=== PATIENT | female | born 2000 | race Caucasian/White ===

== ENCOUNTER 2023-03-02 15:25 | Inpatient (IN) | payer OTHER, SELFPAY ==
[2023-03-02] VITALS (8 sets, daily range): BP systolic 144–159; BP diastolic 76–94; PULSE 106–121; RESP 17–21; TEMP 37–37.8; O2SAT 93–96; BMI 54.3
--- NOTE | 2023-03-02 17:33 | ED.URI ---
HPI - URI/Sore Throat General Chief Complaint: Dyspnea Stated Complaint: sob,fever,pneumonia sent from urgent care Time Seen by Provider: 03/02/23 19:58 Source: patient, family and old records reviewed Mode of arrival: ambulatory Limitations: no limitations History of Present Illness HPI Narrative: 23 yo female with PMH of asthma, PTSD, idiopathic intracranial HTN, bipolar, obesity notes sick since saturday with cough, fevers up to 101 last at 1pm, difficulty breathing, nausea and shortness of breath. She was seen at urgent care - started on zpack and augmentin now has diarrhea and doesn't feel like despite abx for 48 hours she is improving. She is using her INH without relief. She notes no prednisone use but can tolerate it.She comes here for further care MD elicited complaint: fever and cough Pertinent past history: asthma Onset (ago): day(s) (Saturday) Consistency: progressively worsening Severity: moderate Able to tolerate fluids by mouth: Yes Exacerbating factors: exertion and other (coughing) Relieving factors: nothing Context: other (started after she went to [place] for [place] but stayed with partner's family no hotel use and no sick contacts) Associated symptoms: fever, chills, myalgias, rhinorrhea, cough and shortness of breath Treatments prior to arrival: acetaminophen and antibiotics Related Data Allergies Allergy/AdvReac Type Severity Reaction Status Date / Time cariprazine [From Vraylar] Allergy Rash Verified 03/02/23 17:37 cephalexin [From Keflex] Allergy Rash Verified 03/02/23 17:37 doxycycline Allergy Rash Verified 03/02/23 17:37 furosemide [From Lasix] Allergy Rash Verified 03/02/23 17:37 lamotrigine [From Lamictal] Allergy Rash Verified 03/02/23 17:37 linezolid Allergy Rash Verified 03/02/23 17:37 lithium Allergy Rash Verified 03/02/23 17:37 sulfamethoxazole Allergy Rash Verified 03/02/23 17:37 Tetracyclines Allergy Rash Verified 03/02/23 17:37 trimethoprim [From Bactrim] Allergy Rash Verified 03/02/23 17:37 vilazodone [From Viibryd] Allergy Rash Verified 03/02/23 17:37 Review of Systems Review of Systems: Constitutional : pos Fever, pos Chills ENT/Mouth : No Hoarseness, No sore throat, No Rhinorrhea Eyes: No Redness, No Discharge, No Vision Changes Cardiovascular : No Chest Pain, positive SOB, positive Dyspnea on Exertion, No Edema Respiratory : positive Cough, pos Sputum, positive Wheezing, Gastrointestinal : pos Nausea, pos Vomiting, pos Diarrhea, No abdominal Pain Genitourinary : No Dysuria, No Hematuria Musculoskeletal : No joint pain, No Myalgias Skin : No rash Neuro : pos Weakness, No Numbness, No Headache Psych : No anxiety, depression Heme/Lymph: No Bruising, No Bleeding Endocrine : No Polyuria, No Polydipsia All other systems reviewed and are negative [facility] Past Medical History Attestation statement: The following information was validated with the patient. Source: old records reviewed Onset Date is defined in the Problem List Problems that require an onset date and time if occurred within 24 hrs of arrival to the ED Aortic Dissection and Rupture; Neurologic impairment; Cardiopulmonary Arrest; Endotracheal Intubation; Insertion or Replacement of Mechanical Circulatory Assist Device Medical History Asthma PTSD (post-traumatic stress disorder) Bipolar 1 disorder Social History Social History (Updated 03/02/23 @ 20:29 by Elena Castillo DO) Patient Tobacco Use Status: Never used Tobacco Smoked in Last 30 Days: No Use of substances other than those prescribed or required for medical reasons: No Advance Directives: No Advance Directives Information Provided: No Physical Exam Vital Signs: Vital Signs: Last Vital Signs Temp 98.7 F 03/02/23 22:25 Pulse 113 H 03/02/23 22:47 Resp 17 03/02/23 22:47 BP 159/94 H 03/02/23 20:08 Pulse Ox 96 03/02/23 22:25 O2 Del Method Room Air 03/02/23 22:25 BMI result Body Mass Index 54.3 Appearance: Alert. Oriented X3. No acute distress. Eyes: Pupils equal, round and reactive to light. ENT: Pharynx normal. Neck: Normal inspection. Neck supple. CVS: Normal heart rate and rhythm. Pulses normal. Respiratory: No respiratory distress. Breath sounds diminished R base both lungs are coarse with rhonchi and has dry persistent cough - diffuse exp wheezes in upper lobes Abdomen: Soft and non-tender. Skin: Skin warm and dry. Normal skin color. Normal skin turgor. Extremities: No lower extremity edema. No calf ttp Neuro: Oriented X 3. No motor deficit. No sensory deficit. Course Course Course Narrative: This is a rapid medical exam. Deferred additional HPI, ROS, PE to primary provider. 23 yo female with history of bipolar disorder, depression, anxiety, PTSD, PCOS, migraines, pseudotumour cerebri, asthma sent from [facility] here with complaints of nausea, vomiting, diarrhea, chest wall pain, difficulty breathing, fevers despite being on azithromycin/augmentin x 48 hrs. Had outpatient x-ray concern for bilateral PNA 2 days ago. Will obtain labs, viral testing, CXR VSS Medications Administered Generic Name Dose Route Start Last Admin Trade Name Freq PRN Reason Stop Dose Admin Albuterol/Ipratropium 3 ml 03/02/23 22:38 03/02/23 22:47 Albuterol/Iprat 2.5/0.5mg 3 Ml Ampul.Neb INHALE 3 ml Q4H PRN Administration Wheezing Discontinued Medications Generic Name Dose Route Start Last Admin Trade Name Freq PRN Reason Stop Dose Admin Albuterol Sulfate 2.5 mg/ 5 mg 03/02/23 20:21 03/02/23 20:28 Albuterol Sulfate 2.5 mg INHALE 03/02/23 20:22 5 mg ONCE ONE Administration Albuterol Sulfate 5 mg/ 7.5 mg 03/02/23 20:59 03/02/23 21:04 Albuterol Sulfate 2.5 mg INHALE 03/02/23 21:00 7.5 mg ONCE ONE Administration Piperacillin Sod/Tazobactam 50 mls @ 100 mls/hr 03/02/23 20:13 03/02/23 21:29 Sod 3.375 gm/ Sodium Chloride IV 03/02/23 20:42 Infused ONCE ONE Infusion Sodium Chloride 1,000 mls @ 999 mls/hr 03/02/23 20:45 03/02/23 21:54 Ns IV 03/02/23 21:45 Infused .Q1H1M JANELL Infusion Levofloxacin 750 mg in 150 mls @ 100 mls/hr 03/02/23 21:00 03/02/23 21:29 Levaquin IV 03/02/23 22:29 100 mls/hr ONCE ONE Administration Ketorolac Tromethamine 15 mg 03/02/23 20:31 03/02/23 20:46 Ketorolac Tromethamine 15 Mg/Ml Vial IVPUSH 03/02/23 20:32 15 mg ONCE ONE Administration Methylprednisolone Sodium Succinate 60 mg 03/02/23 20:12 03/02/23 20:46 Methylprednisolone Sod Succ 125 Mg/2 Ml Vial IVPUSH 03/02/23 20:13 60 mg ONCE ONE Administration Ondansetron HCl 4 mg 03/02/23 20:12 03/02/23 20:46 Ondansetron Hcl 4 Mg/2 Ml Vial IVPUSH 03/02/23 20:13 4 mg ONCE ONE Administration Medical Decision Making Medical Decision Making MDM Narrative: 23 yo female with PMH of asthma, PTSD, idiopathic intracranial HTN, bipolar, obesity here with URI symptoms n/v/d and persistent symptoms in setting of recent pneumonia placed on azithromycin and augmentin. She has hx of asthma as well and is not on steroids. At this time will obtain labs, lactic acid cultures, start on nebs, IV steroids, CXR. She is somewhat toxic appearing despite normal labs will provide medications may be able to go home if we can get her better but she has lower O2 sats and wheezing anticipate repeat treatments. Will start on zosyn and levofloxacin has a myriad of allergies. Differential Diagnosis Differential Diagnoses: The differential diagnosis associated with the presentation includes URI, pneumonia, viral syndrome Admission/Observation Consideration of admission/observation: Escalation of care including admission/observation considered tachycardic, sats 93% no sig improvement with treatments will admit given recent outpatient abx Consult Healthcare Provider Management of the patient was discussed with: Hospitalist (will admit) Lab Data [facility] Lab Attestation statement: I reviewed the patient's lab results. 03/02/23 18:19 03/02/23 18:19 Labs: Lab Results 03/02/23 03/02/23 03/02/23 Range/Units 18:16 18:19 20:37 WBC 8.9 (4.8-10.8) X10*3/uL RBC 4.88 (4.20-5.50) X10*6/uL Hgb 13.1 (12.0-16.0) g/dl Hct 42.1 (37.0-47.0) % MCV 86.3 (80.0-98.0) fL MCH 26.8 L (27.0-33.0) pg MCHC 31.1 (31.0-35.0) g/dl RDW 13.6 (11.0-16.0) % Plt Count 294 (160-400) X10*3/uL MPV 9.7 (9.4-12.3) fL Immature Gran % (Auto) 0.3 (0.0-0.4) % Neut % (Auto) 83.7 H (45-73) % Lymph % (Auto) 12.0 L (20-40) % [place] % (Auto) 3.6 (2-11) % Eos % (Auto) 0.2 (0-4) % Baso % (Auto) 0.2 (0-2) % Lymph # (Auto) 1.1 L (1.2-4.9) X10*3/uL [place] # (Auto) 0.3 (0.1-1.2) X10*3/uL Eos # (Auto) 0.0 (0.0-0.4) X10*3/uL Baso # (Auto) 0.0 (0.0-0.2) X10*3/uL Abs Immat Gran (auto) 0.03 (0.00-0.03) X10*3/uL Absolute Neuts (auto) 7.5 (2.0-8.3) x10*3/uL Absolute Nucleated RBC 0.000 (0.0-0.012) X10*3/uL Nucleated RBC % (auto) 0.0 (0.0-0.2) /100WBC Sodium 140 (135-145) mmol/L Potassium 3.8 (3.3-5.1) mmol/L Chloride 108 (96-108) mmol/L Carbon Dioxide 19 L (22-29) mmol/L Anion Gap 17 (12-20) BUN 7 L (9-16) mg/dL Creatinine 0.71 (0.5-1.4) mg/dL Estim Creat Clear Calc 154.4 Estimated GFR > 60 Random Glucose 126 H (60-115) mg/dL Lactic Acid 1.3 (0.5-2.0) mmol/L Calcium 9.5 (8.4-10.2) mg/dL Total Bilirubin 0.4 (0.0-1.0) mg/dL Direct Bilirubin 0.2 (0.0-0.5) mg/dL AST 28 (5-31) U/L ALT 29 (0-31) U/L Alkaline Phosphatase 50 (39-117) U/L Total Protein 7.7 (6.5-8.0) g/dL Albumin 4.3 (3.5-5.0) g/dL Influenza Type A (PCR) NEGATIVE (Negative) Influenza Type B (PCR) NEGATIVE (Negative) RSV RNA Qual (PCR) NEGATIVE (Negative) SARS-CoV-2 RNA (RT-PCR) NEGATIVE (Negative) Independent Interpretation I performed an independent interpretation of an: Plain X-Ray (pneumonia) Radiology Impression Discussion of test interpretation with radiology: I have reviewed the radiologist's reading. Independent Historian Clinical information obtained from an independent historian. History obtained from or confirmed by: Parent External Record Review External record reviewed: Office record Critical Care Time Critical Care Time Critical Care Time: Yes Total Critical Care Time: 40 Attestation: repeat nebs, IVF, admission. I attest to this time spent taking care of the patient Discharge Plan Discharge Clinical Impression: Pneumonia Qualifiers: Pneumonia type: due to unspecified organism Laterality: right Lung location: lower lobe of lung Qualified Code(s): J18.9 - Pneumonia, unspecified organism Asthma with exacerbation Qualifiers: Asthma severity: moderate Asthma persistence: persistent Qualified Code(s): J45.41 - Moderate persistent asthma with (acute) exacerbation Patient Disposition: Admitted As Inpatient
--- NOTE | 2023-03-02 22:32 | PC.NURSE ---
pt reports difficulty breathing Dr. castillo notified resp called. sats remain 97% on RA placed on 2L NC for comfort per Dr. Castillo. IV abx infusing.
--- NOTE | 2023-03-02 22:54 | PC.NURSE ---
respiratory at bedside.
--- NOTE | 2023-03-02 23:23 | PM.IMHP ---
History of Present Illness Date of Service: 03/02/23 Chief Complaint: Dyspnea This is a 23-year-old female with pertinent history of asthma not on home oxygen, benign intracranial hypertension, migraine headaches, mood disorder, gastroesophageal reflux disease who presents to the emergency department for evaluation of dyspnea. Patient states her symptoms started 3 days prior to presentation. She has been having dyspnea which is worse with ambulation. Is it associated with productive cough and wheezing. Also has been having subjective fevers and chills. Patient went to urgent care 2 days prior to presentation and was prescribed oral antibiotics. Patient states her symptoms have progressed over the last 2 days. Has never been hospitalized for asthma. No chest discomfort, palpitations, abdominal pain, changes in urinary or bowel habits. In the emergency department, imaging concerning for right-sided pneumonia and patient was found to be hypoxemic requiring supplemental oxygen. Review of Systems Constitutional: Constitutional: Reports chills, Reports fatigue, Reports fever(s), Reports lethargy and Reports weakness Cardiovascular: Cardiovascular: Reports dyspnea on exertion Respiratory: Respiratory: Reports cough, Reports dyspnea on exertion and Reports wheezing Gastrointestinal: Gastrointestinal: Reports no additional gastrointestinal complaints Genitourinary: Genitourinary: Reports no additional female genitourinary complaints Neurologic: Reports weakness Endocrine: Endocrine: Reports fatigue Allergic/Immunologic: Allergic/Immunologic: Reports wheezing [facility] Medical History Asthma PTSD (post-traumatic stress disorder) Bipolar 1 disorder Pertinent family history: No family history of early CAD Social History Patient Tobacco Use Status: Never used Tobacco Smoked in Last 30 Days: No Use of substances other than those prescribed or required for medical reasons: No Advance Directives: No Advance Directives Information Provided: No Meds Allergies Allergy/AdvReac Type Severity Reaction Status Date / Time cariprazine [From Vraylar] Allergy Rash Verified 03/02/23 17:37 cephalexin [From Keflex] Allergy Rash Verified 03/02/23 17:37 doxycycline Allergy Rash Verified 03/02/23 17:37 furosemide [From Lasix] Allergy Rash Verified 03/02/23 17:37 lamotrigine [From Lamictal] Allergy Rash Verified 03/02/23 17:37 linezolid Allergy Rash Verified 03/02/23 17:37 lithium Allergy Rash Verified 03/02/23 17:37 sulfamethoxazole Allergy Rash Verified 03/02/23 17:37 Tetracyclines Allergy Rash Verified 03/02/23 17:37 trimethoprim [From Bactrim] Allergy Rash Verified 03/02/23 17:37 vilazodone [From Viibryd] Allergy Rash Verified 03/02/23 17:37 Active Medications: Current Medications Acetaminophen (Acetaminophen 325 Mg Tablet) 650 mg PO Q6H PRN PRN Reason: Pain, Mild (Pain Scale 1-3) Albuterol/Ipratropium (Albuterol/Iprat 2.5/0.5mg 3 Ml Ampul.Neb) 3 ml INHALE RQ4H WHILE AWAKE JANELL Albuterol/Ipratropium (Albuterol/Iprat 2.5/0.5mg 3 Ml Ampul.Neb) 3 ml INHALE Q4H PRN PRN Reason: Wheezing Last Admin: 03/02/23 22:47 Dose: 3 ml Enoxaparin Sodium (Enoxaparin Sodium 40 Mg/0.4 Ml Syringe) 40 mg SUBCUT Q12H JANELL Melatonin (Melatonin 3 Mg Tablet) 6 mg PO BEDTIME PRN PRN Reason: Insomnia Methylprednisolone Sodium Succinate (Methylprednisolone Sod Succ 40 Mg/Ml Vial) 40 mg IVPUSH Q12H JANELL Ondansetron HCl (Ondansetron Hcl 4 Mg/2 Ml Vial) 4 mg IVPUSH Q8H PRN PRN Reason: Nausea and Vomiting Sodium Chloride (0.9 % Sodium Chloride Flush 3 Ml Syringe) 3 ml IVFLUSH QSHIFT JANELL Physical Exam Vital Signs and Narrative: Vital Signs: Last Vital Signs Temp 98.7 F 03/02/23 22:25 Pulse 113 H 03/02/23 22:47 Resp 17 03/02/23 22:47 BP 159/94 H 03/02/23 20:08 Pulse Ox 96 03/02/23 22:25 O2 Del Method Room Air 03/02/23 22:25 BMI result Body Mass Index 54.3 Middle-aged male lying in bed in mild distress on supplemental oxygen Neck supple, no JVD Tachycardic with regular rhythm, S1-S2 heard Bilateral wheezing present Abdomen soft nontender, no guarding, no rigidity Patient is awake, alert and oriented to self, place, time and person ; no focal motor deficit Psych: Normal mood No pedal edema Results Labs 03/02/23 18:19 03/02/23 18:19 Labs: Laboratory Results - last 24 hr 03/02/23 03/02/23 03/02/23 18:16 18:19 20:37 MCV 86.3 MCH 26.8 L MCHC 31.1 RDW 13.6 Plt Count 294 MPV 9.7 Immature Gran % (Auto) 0.3 Neut % (Auto) 83.7 H Lymph % (Auto) 12.0 L [place] % (Auto) 3.6 Eos % (Auto) 0.2 Baso % (Auto) 0.2 Lymph # (Auto) 1.1 L [place] # (Auto) 0.3 Eos # (Auto) 0.0 Baso # (Auto) 0.0 Abs Immat Gran (auto) 0.03 Absolute Neuts (auto) 7.5 Absolute Nucleated RBC 0.000 Nucleated RBC % (auto) 0.0 Anion Gap 17 Estim Creat Clear Calc 154.4 Estimated GFR > 60 Random Glucose 126 H Lactic Acid 1.3 Calcium 9.5 Total Bilirubin 0.4 Direct Bilirubin 0.2 AST 28 ALT 29 Alkaline Phosphatase 50 Total Protein 7.7 Albumin 4.3 Influenza Type A (PCR) NEGATIVE Influenza Type B (PCR) NEGATIVE RSV RNA Qual (PCR) NEGATIVE SARS-CoV-2 RNA (RT-PCR) NEGATIVE Imaging Radiologist's Impressions: Impressions Chest X-Ray 03/02/23 17:59 IMPRESSION: Right lower lobe infiltrate. Assessment and Plan (1) Hypoxia: Status: Acute (2) Asthma with exacerbation: Qualifiers: Asthma persistence: persistent Asthma severity: moderate Qualified Code(s): J45.41 - Moderate persistent asthma with (acute) exacerbation Status: Acute (3) Pneumonia: Qualifiers: Laterality: right Lung location: lower lobe of lung Pneumonia type: due to unspecified organism Qualified Code(s): J18.9 - Pneumonia, unspecified organism Status: Acute Plan This is a 23-year-old female with pertinent history of asthma not on home oxygen, benign intracranial hypertension, migraine headaches, mood disorder, gastroesophageal reflux disease who presents to the emergency department for evaluation of dyspnea. #. Acute hypoxemic respiratory failure due to asthma exacerbation in the setting of right-sided pneumonia: Will admit patient with supplemental oxygen. Initiating systemic steroids. Scheduled and p.rjuan antonio Hernandez. Initiating empiric IV antibiotics for community-acquired pneumonia. Sputum culture, Legionella urine antigen, MRSA nasal screen pending #. Benign intracranial hypertension: On acetazolamide #. Gastroesophageal reflux disease: On PPI #. Migraine headache: On Topamax #. Mood disorder: Continue home mood stabilizers #. Obesity: Counseled regarding diet and exercise Med rec pending DVT prophylaxis: Lovenox Full code Admit as inpatient and will require two night minimum hospital stay for supplemental oxygen, IV antibiotics (as above), which is not possible in a lesser acute setting. Quality Stroke Does the patient have a stroke diagnosis?: No VTE Prior VTE?: No VTE Risk Level:: Medical - moderate - high VTE Device Contraindication: Treatment Not Indicated VTE Drug Contraindication: N/A - Med Ordered
[2023-03-03] VITALS (13 sets, daily range): BP systolic 127–164; BP diastolic 69–91; PULSE 88–113; RESP 12–20; TEMP 36–36.9; O2SAT 92–97; BMI 53.9
--- NOTE | 2023-03-03 00:17 | PC.NURSE ---
this rn medicated pt per apr.
--- NOTE | 2023-03-03 02:21 | PC.NURSE ---
pt reporting cp/back pain returned 09/03; afebrile however feels chills/sweats. tylenol prn given per pt request.
--- NOTE | 2023-03-03 02:22 | PC.NURSE ---
o2 titrated from 3L to 2L NC. remains 98% on 2L NC.
[2023-03-03 06:44] LABS: Anion Gap 14 (12-20); Blood Urea Nitrogen 8 mg/dL (9-16); Calcium 9.8 mg/dL (8.4-10.2); Carbon Dioxide 20 mmol/L (22-29); Chloride 109 mmol/L (96-108); Creatinine Clr Calc Pharmacy 154.4; Estimated Glomerular Filt Rate > 60; Glucose Random 149 mg/dL (60-115); Potassium 3.7 mmol/L (3.3-5.1); Sodium 139 mmol/L (135-145)
--- NOTE | 2023-03-03 08:02 | PC.NURSE ---
ASSUMED CARE OF THIS PT. PT A&OX4, SPEAKING IN CLEAR FULL SENTENCES. BARKING COUGH NOTED, EXP WHEEZE AUDIBLE THROUGHOUT. REMAINS TO 2L SUPP O2, TO BE TITRATED DOWN THIS AM. TACHY NS IN 110S ON MONITOR. RT AT BEDSIDE FOR TX. MEDS LIST GIVEN TO PHARMACIST.
--- NOTE | 2023-03-03 08:03 | HO.PM.IMPN ---
Subjective Subjective Date of Service: 03/03/23 Interval History: Seen in follow-up for asthma exacerbation, pneumonia, hypoxia Interval history: Still with significant shortness of breath and wheezing as well as cough. Pleuritic chest pain. Review of Systems Review of Systems: Yes all other systems are reviewed and are negative Physical Exam Vital Signs: Vital Signs: Last Vital Signs Temp 98.4 F 03/03/23 06:38 Pulse 95 03/03/23 07:55 Resp 16 03/03/23 07:55 BP 156/75 H 03/03/23 06:38 Pulse Ox 94 03/03/23 06:38 O2 Del Method Nasal Cannula 03/03/23 06:38 O2 Flow Rate 3 03/03/23 06:38 BMI result Body Mass Index 54.3 Constitutional - Awake and Alert, No apparent distress Eyes - PERRLA, EOMI Cardiovascular - S1S2, RRR, No edema Respiratory - Normal lung expansion, Normal respiratory effort, No respiratory distress, coarse lung sounds with expiratory wheezing Gastrointestinal - NT / ND; +BS; No rebound or guarding Extremities - no calf tenderness bilaterally, no swelling Skin - Warm/Dry Neurological - Alert & oriented x3 Psychological - Appropriate affect Objective Data Active Medications Acetaminophen (Acetaminophen 325 Mg Tablet) 650 mg PO Q6H PRN PRN Reason: Pain, Mild (Pain Scale 1-3) Last Admin: 03/03/23 02:23 Dose: 650 mg Documented By: ANDREW Albuterol/Ipratropium (Albuterol/Iprat 2.5/0.5mg 3 Ml Ampul.Neb) 3 ml INHALE RQ4H WHILE AWAKE REPLACED BY [facility] Last Admin: 03/03/23 07:54 Dose: 3 ml Documented By: CESAR Albuterol/Ipratropium (Albuterol/Iprat 2.5/0.5mg 3 Ml Ampul.Neb) 3 ml INHALE Q4H PRN PRN Reason: Wheezing Last Admin: 03/03/23 05:30 Dose: 3 ml Documented By: TOMER Enoxaparin Sodium (Enoxaparin Sodium 40 Mg/0.4 Ml Syringe) 40 mg SUBCUT Q12H REPLACED BY [facility] Last Admin: 03/03/23 00:15 Dose: 40 mg Documented By: PEGGY Ceftriaxone Sodium 1 gm/ (Sodium Chloride) 50 mls @ 100 mls/hr IV BEDTIME REPLACED BY [facility] Last Infusion: 03/03/23 00:19 Dose: Infused Documented By: ANDREW Azithromycin 500 mg/ Sodium (Chloride) 250 mls @ 125 mls/hr IV BEDTIME REPLACED BY [facility] Last Infusion: 03/03/23 04:16 Dose: Infused Documented By: ANDREW Melatonin (Melatonin 3 Mg Tablet) 6 mg PO BEDTIME PRN PRN Reason: Insomnia Methylprednisolone Sodium Succinate (Methylprednisolone Sod Succ 40 Mg/Ml Vial) 40 mg IVPUSH Q12H REPLACED BY [facility] Last Admin: 03/03/23 07:52 Dose: 40 mg Documented By: DEA Ondansetron HCl (Ondansetron Hcl 4 Mg/2 Ml Vial) 4 mg IVPUSH Q8H PRN PRN Reason: Nausea and Vomiting Sodium Chloride (0.9 % Sodium Chloride Flush 3 Ml Syringe) 3 ml IVFLUSH QSHIFT REPLACED BY [facility] Last Admin: 03/03/23 07:53 Dose: 3 ml Documented By: DEA Labs 03/03/23 06:01 03/03/23 06:01 Labs: Laboratory Results - last 24 hr 03/02/23 03/02/23 03/02/23 18:16 18:19 20:37 MCV 86.3 MCH 26.8 L MCHC 31.1 RDW 13.6 Plt Count 294 MPV 9.7 Immature Gran % (Auto) 0.3 Neut % (Auto) 83.7 H Lymph % (Auto) 12.0 L [place] % (Auto) 3.6 Eos % (Auto) 0.2 Baso % (Auto) 0.2 Lymph # (Auto) 1.1 L [place] # (Auto) 0.3 Eos # (Auto) 0.0 Baso # (Auto) 0.0 Abs Immat Gran (auto) 0.03 Absolute Neuts (auto) 7.5 Absolute Nucleated RBC 0.000 Nucleated RBC % (auto) 0.0 Anion Gap 17 Estim Creat Clear Calc 154.4 Estimated GFR > 60 Random Glucose 126 H Lactic Acid 1.3 Calcium 9.5 Total Bilirubin 0.4 Direct Bilirubin 0.2 AST 28 ALT 29 Alkaline Phosphatase 50 Total Protein 7.7 Albumin 4.3 Influenza Type A (PCR) NEGATIVE Influenza Type B (PCR) NEGATIVE RSV RNA Qual (PCR) NEGATIVE SARS-CoV-2 RNA (RT-PCR) NEGATIVE 03/03/23 06:01 MCV 84.7 MCH 26.8 L MCHC 31.6 RDW 13.7 Plt Count 305 MPV 9.3 L Immature Gran % (Auto) 0.3 Neut % (Auto) 85.2 H Lymph % (Auto) 12.6 L [place] % (Auto) 1.9 L Eos % (Auto) 0.0 Baso % (Auto) 0.0 Lymph # (Auto) 0.7 L [place] # (Auto) 0.1 Eos # (Auto) 0.0 Baso # (Auto) 0.0 Abs Immat Gran (auto) 0.02 Absolute Neuts (auto) 4.9 Absolute Nucleated RBC 0.000 Nucleated RBC % (auto) 0.0 Anion Gap 14 Estim Creat Clear Calc 154.4 Estimated GFR > 60 Random Glucose 149 H Lactic Acid Calcium 9.8 Total Bilirubin Direct Bilirubin AST ALT Alkaline Phosphatase Total Protein Albumin Influenza Type A (PCR) Influenza Type B (PCR) RSV RNA Qual (PCR) SARS-CoV-2 RNA (RT-PCR) Assessment and Plan (1) Hypoxia: Status: Acute (2) Asthma with exacerbation: Status: Acute (3) Pneumonia: Status: Acute Plan This is a 23-year-old female with pertinent history of asthma not on home oxygen, benign intracranial hypertension, migraine headaches, mood disorder, gastroesophageal reflux disease admitted for acute asthma exacerbation with acute hypoxemic respiratory failure and pneumonia #. Acute hypoxemic respiratory failure due to asthma exacerbation in the setting of right-sided pneumonia -continue supplemental O2 to maintain oximetry greater than 92%, wean as tolerated -IV methylprednisolone 40 mg b.i.d. -DuoNebs q.4h while awake -albuterol p.r.n. -IV ceftriaxone and azithromycin (initiated 03/02) -symptomatic management -sputum culture, strep pneumo antigen, Legionella antigen pending. MRSA screen negative -Follow CBC, cultures #Benign intracranial hypertension -continue acetazolamide #Gastroesophageal reflux disease -continue PPI #Migraine headache -continue Topamax #Mood disorder -continue home mood stabilizers #Morbid obesity with BMI >54 -Counseled regarding diet and exercise Med rec pending DVT prophylaxis: Lovenox Full code Pt requires ongoing inpt stay due to asthma exacerbation still with coarse expiratory wheezing and pneumonia requiring IV steroids, scheduled updrafts, IV antibiotics, and supplemental oxygen titration Quality Stroke Does the patient have a stroke diagnosis?: No VTE Prior VTE?: No VTE Risk Level:: Medical - moderate - high VTE Device Contraindication: Treatment Not Indicated VTE Drug Contraindication: N/A - Med Ordered
--- NOTE | 2023-03-03 08:12 | PHA.MEDREC ---
Pharmacy Consult ? Medication Reconciliation Pharmacy has completed the medication reconciliation. Patient had a hand written list
[2023-03-03] MEDS: Omeprazole 40 MG CAPSULE.DR PO (10:33)
[2023-03-03] MEDS: Topiramate 100 MG TABLET PO (10:33)
[2023-03-03] MEDS: Cholecalciferol (Vitamin D3) 25 MCG TABLET 50 MCG PO (10:33)
[2023-03-03] MEDS: Escitalopram Oxalate 10 MG TABLET PO (10:34)
[2023-03-03] MEDS: Montelukast Sodium 10 MG TABLET PO (10:34)
[2023-03-03] MEDS: hydrOXYzine HCL 25 MG TABLET PO (10:34)
[2023-03-03] MEDS: Magnesium Oxide 400 MG TABLET PO (10:34)
--- NOTE | 2023-03-03 10:51 | PC.NURSE ---
PT AMBULATING WITH NO ISSUE, INDEPENDENTLY, REMAINS 96% ON RA.
--- NOTE | 2023-03-03 10:52 | PC.NURSE ---
PTS MOTHER TO BRING ACETAZOLAMIDE FROM HOME
--- NOTE | 2023-03-03 11:48 | PC.NURSE ---
PLACED BACK ON 1.5L SUPP O2 PER PA FOR SATS 91-92% ON RA, NO IMPROVEMENT WITH REPOSITIONING, PT FEELING SOB.
--- NOTE | 2023-03-03 21:19 | PC.NURSE ---
pt brought the med Acetazolamide ER 2000mg/daily for the morning. pharm. called me that this med with Aripirazole has contraindication. clearfied w/pt. she said it's been taking since April 2022. without any problem. pharm. made aware. will continue monitor.
[2023-03-04] VITALS (12 sets, daily range): BP systolic 138–168; BP diastolic 75–86; PULSE 80–115; RESP 16–20; TEMP 36–37.3; O2SAT 94–98
[2023-03-04 05:37] LABS: MANUAL DIFF FLAG NO
[2023-03-04 05:43] LABS: Basophils Percent Auto 0.1 % (0-2); Hematocrit 38.5 % (37.0-47.0); Imm Gran Abs Auto 0.11 X10*3/uL (0.00-0.03); Imm Gran Pct Auto 0.6 % (0.0-0.4); Lymphocytes Absolute Auto 1.5 X10*3/uL (1.2-4.9); Lymphocytes Percent Auto 8.9 % (20-40); Mean Corpuscular HGB Conc 31.2 g/dl (31.0-35.0); Mean Corpuscular Hemoglobin 27.1 pg (27.0-33.0); Mean Corpuscular Volume 87.1 fL (80.0-98.0); Mean Platelet Volume 9.3 fL (9.4-12.3); Monocytes Absolute Auto 0.5 X10*3/uL (0.1-1.2); Monocytes Percent Auto 3.1 % (2-11); Neutrophils Percent Auto 87.3 % (45-73); Platelet Count 342 X10*3/uL (160-400); Red Blood Count 4.42 X10*6/uL (4.20-5.50); Red Cell Distribution Width 13.9 % (11.0-16.0); White Blood Count 17.2 X10*3/uL (4.8-10.8)
[2023-03-04 05:56] LABS: Anion Gap 15 (12-20); Blood Urea Nitrogen 13 mg/dL (9-16); Calcium 9.8 mg/dL (8.4-10.2); Carbon Dioxide 21 mmol/L (22-29); Chloride 108 mmol/L (96-108); Creatinine Clr Calc Pharmacy 151.7; Estimated Glomerular Filt Rate > 60; Glucose Random 139 mg/dL (60-115); Potassium 4.1 mmol/L (3.3-5.1); Sodium 140 mmol/L (135-145)
--- NOTE | 2023-03-04 10:47 | HO.PM.IMPN ---
Subjective Subjective Date of Service: 03/04/23 Interval History: Seen in follow-up for asthma exacerbation, pneumonia, hypoxia Interval history: reprots shortness of breath and wheezing as well as cough. Pleuritic chest pain. Intermittently requiring supplemental O2 Review of Systems Review of Systems: Yes all other systems are reviewed and are negative Physical Exam Vital Signs: Vital Signs: Last Vital Signs Temp 98.7 F 03/04/23 07:49 Pulse 112 H 03/04/23 08:07 Resp 20 03/04/23 08:07 BP 140/76 H 03/04/23 07:49 Pulse Ox 96 03/04/23 07:49 O2 Del Method Nasal Cannula 03/04/23 07:49 O2 Flow Rate 2 03/04/23 07:49 BMI result Body Mass Index 53.9 Constitutional - Awake and Alert, morbidly obese, No apparent distress Eyes - PERRLA, EOMI Cardiovascular - S1S2, RRR, No edema Respiratory - Normal lung expansion, Normal respiratory effort, No respiratory distress, CTA bilaterally Gastrointestinal - NT / ND; +BS; No rebound or guarding Extremities - no calf tenderness bilaterally, no swelling Skin - Warm/Dry Neurological - Alert & oriented x3 Psychological - Appropriate affect Objective Data Active Medications Acetaminophen (Acetaminophen 325 Mg Tablet) 650 mg PO Q6H PRN PRN Reason: Pain, Mild (Pain Scale 1-3) Last Admin: 03/04/23 00:30 Dose: 650 mg Documented By: TERE Albuterol Sulfate (Albuterol Sulfate (0.083%) 2.5 Mg/3 Ml Vial.Neb) 2.5 mg INHALE Q2H PRN PRN Reason: Shortness of Breath/Wheezing Last Admin: 03/04/23 00:34 Dose: 2.5 mg Documented By: BLAYNE Albuterol/Ipratropium (Albuterol/Iprat 2.5/0.5mg 3 Ml Ampul.Neb) 3 ml INHALE RQ4H WHILE AWAKE [facility] Last Admin: 03/04/23 08:07 Dose: 3 ml Documented By: MARGY Aripiprazole (Aripiprazole 20 Mg Tablet) 20 mg PO BEDTIME [facility] Last Admin: 03/03/23 20:23 Dose: 20 mg Documented By: TERE Cyclobenzaprine HCl (Cyclobenzaprine Hcl 5 Mg Tablet) 5 mg PO BEDTIME [facility] Last Admin: 03/03/23 20:23 Dose: 5 mg Documented By: TERE Enoxaparin Sodium (Enoxaparin Sodium 40 Mg/0.4 Ml Syringe) 40 mg SUBCUT Q12H [facility] Last Admin: 03/03/23 22:22 Dose: 40 mg Documented By: TERE Escitalopram Oxalate (Escitalopram Oxalate 10 Mg Tablet) 10 mg PO DAILY [facility] Last Admin: 03/04/23 08:23 Dose: 10 mg Documented By: TENNILLE Guaifenesin/Codeine Phosphate (Guaifen/Codeine Sf 200/20/10ml 10 Ml Liquid) 5 ml PO Q4H [facility] Last Admin: 03/04/23 08:23 Dose: 5 ml Documented By: TENNILLE Hydroxyzine HCl (Hydroxyzine Hcl 25 Mg Tablet) 25 mg PO Q8H [facility] Last Admin: 03/04/23 02:15 Dose: 25 mg Documented By: TERE Ceftriaxone Sodium 1 gm/ (Sodium Chloride) 50 mls @ 100 mls/hr IV BEDTIME [facility] Last Infusion: 03/03/23 20:52 Dose: Infused Documented By: TERE Azithromycin 500 mg/ Sodium (Chloride) 250 mls @ 125 mls/hr IV BEDTIME [facility] Last Infusion: 03/03/23 23:06 Dose: Infused Documented By: TERE Magnesium Oxide (Magnesium Oxide 400 Mg Tablet) 400 mg PO DAILY [facility] Last Admin: 03/04/23 08:24 Dose: 400 mg Documented By: TENNILLE Melatonin (Melatonin 3 Mg Tablet) 6 mg PO BEDTIME PRN PRN Reason: Insomnia Last Admin: 03/04/23 00:31 Dose: 6 mg Documented By: TERE Methylprednisolone Sodium Succinate (Methylprednisolone Sod Succ 40 Mg/Ml Vial) 40 mg IVPUSH Q12H [facility] Last Admin: 03/04/23 06:02 Dose: 40 mg Documented By: TERE Montelukast Sodium (Montelukast Sodium 10 Mg Tablet) 10 mg PO DAILY [facility] Last Admin: 03/04/23 08:24 Dose: 10 mg Documented By: TENNILLE Patient Own Med ( Acetazolamide 500 Mg Capsule, Extended Release) 2,000 mg PO DAILY [facility] Last Admin: 03/04/23 08:24 Dose: 2,000 mg Documented By: TENNILLE Omeprazole (Omeprazole 40 Mg Capsule.Dr) 40 mg PO DAILY@0630 [facility] Last Admin: 03/04/23 05:44 Dose: 40 mg Documented By: TERE Ondansetron HCl (Ondansetron Hcl 4 Mg/2 Ml Vial) 4 mg IVPUSH Q8H PRN PRN Reason: Nausea and Vomiting Sodium Chloride (0.9 % Sodium Chloride Flush 3 Ml Syringe) 3 ml IVFLUSH QSHIFT [facility] Last Admin: 03/04/23 08:25 Dose: 3 ml Documented By: TENNILLE Topiramate (Topiramate 100 Mg Tablet) 100 mg PO DAILY [facility] Last Admin: 03/04/23 08:23 Dose: 100 mg Documented By: TENNILLE Vitamin D (Cholecalciferol (Vitamin D3) 25 Mcg Tablet) 50 mcg PO DAILY [facility] Last Admin: 03/04/23 08:23 Dose: 50 mcg Documented By: TENNILLE Labs 03/04/23 05:24 03/04/23 05:24 Labs: Laboratory Results - last 24 hr 03/04/23 05:24 MCV 87.1 MCH 27.1 MCHC 31.2 RDW 13.9 Plt Count 342 MPV 9.3 L Immature Gran % (Auto) 0.6 H Neut % (Auto) 87.3 H Lymph % (Auto) 8.9 L [place] % (Auto) 3.1 Eos % (Auto) 0.0 Baso % (Auto) 0.1 Lymph # (Auto) 1.5 [place] # (Auto) 0.5 Eos # (Auto) 0.0 Baso # (Auto) 0.0 Abs Immat Gran (auto) 0.11 H Absolute Neuts (auto) 15.0 H Absolute Nucleated RBC 0.000 Nucleated RBC % (auto) 0.0 Anion Gap 15 Estim Creat Clear Calc 151.7 Estimated GFR > 60 Random Glucose 139 H Calcium 9.8 Microbiology Microbiology Results: Microbiology 03/02/23 20:37 Blood Culture - Preliminary Blood - Venous No growth after 24 hours. 03/02/23 01:00 Blood Culture - Preliminary Blood - Venous No growth after 24 hours. Assessment and Plan (1) Hypoxia: Status: Acute (2) Asthma with exacerbation: Status: Acute (3) Pneumonia: Status: Acute (4) Obesity hypoventilation syndrome: Status: Acute Plan This is a 23-year-old female with pertinent history of asthma not on home oxygen, benign intracranial hypertension, migraine headaches, mood disorder, gastroesophageal reflux disease admitted for acute asthma exacerbation with acute hypoxemic respiratory failure and pneumonia. #. Acute hypoxemic respiratory failure due to asthma exacerbation in the setting of right-sided pneumonia- likely complicated by obesity hypoventilation syndrome -continue supplemental O2 to maintain oximetry greater than 92%, wean as tolerated -IV methylprednisolone 40 mg b.i.d. -DuoNebs q.4h while awake -albuterol p.r.n. -add Incentive spironmetry, encourage OOB -IV ceftriaxone and azithromycin (initiated 03/02) -symptomatic management -sputum culture, strep pneumo antigen, Legionella antigen pending. MRSA screen negative -Follow CBC, blood cultures negative to date #Acute leukocytosis -likely r/t steroid use as well as infection #Benign intracranial hypertension -continue acetazolamide #Gastroesophageal reflux disease -continue PPI #Migraine headache -continue Topamax #Mood disorder -continue home mood stabilizers #Morbid obesity with BMI >54 -Counseled regarding diet and exercise Med rec pending DVT prophylaxis: Lovenox Full code Pt requires ongoing inpt stay due to asthma exacerbation with pneumonia symptomatic with significant sob and wheezing requiring IV steroids, scheduled updrafts, IV antibiotics, and supplemental oxygen titration Quality Stroke Does the patient have a stroke diagnosis?: No VTE Prior VTE?: No VTE Risk Level:: Medical - moderate - high VTE Device Contraindication: Treatment Not Indicated VTE Drug Contraindication: N/A - Med Ordered
[2023-03-04] MEDS: hydrOXYzine HCL 25 MG TABLET PO (17:19)
[2023-03-04] MEDS: guaiFEN/Codeine SF 200/20/10ML 10 ML LIQUID 5 ML PO ×2 (17:20→21:28)
[2023-03-04] MEDS: methylPREDNISolone Sod Succ 40 MG/ML VIAL IVPUSH (18:11)
[2023-03-04] MEDS: ARIPiprazole 20 MG TABLET PO (19:54)
[2023-03-04] MEDS: Albuterol/Iprat 2.5/0.5MG 3 ML AMPUL.NEB INHALE (20:00)
[2023-03-04] MEDS: Acetaminophen 325 MG TABLET 650 MG PO (20:09)
[2023-03-04] MEDS: Cyclobenzaprine HCl 5 MG TABLET PO (20:15)
[2023-03-04] MEDS: cefTRIAXone sodium 1 GM in 0.9 % Sodium Chloride 50 ML IV (20:19)
[2023-03-04] MEDS: Enoxaparin Sodium 40 MG/0.4 ML SYRINGE SUBCUT (23:35)
[2023-03-05] MEDS: guaiFEN/Codeine SF 200/20/10ML 10 ML LIQUID 5 ML PO ×3 (02:31→09:32)
[2023-03-05] MEDS: hydrOXYzine HCL 25 MG TABLET PO ×2 (02:31→09:32)
[2023-03-05 03:16] VITALS: BP 166/80; PULSE 85; RESP 18; TEMP 35.9; O2SAT 96
[2023-03-05] MEDS: methylPREDNISolone Sod Succ 40 MG/ML VIAL IVPUSH (06:08)
[2023-03-05] MEDS: Omeprazole 40 MG CAPSULE.DR PO (06:08)
[2023-03-05 07:09] LABS: MANUAL DIFF FLAG NO
[2023-03-05 07:25] VITALS: BP 154/90; PULSE 83; RESP 18; TEMP 36.6; O2SAT 97
[2023-03-05 07:25] LABS: Basophils Percent Auto 0.1 % (0-2); Hematocrit 39.6 % (37.0-47.0); Hemoglobin 12.2 g/dl (12.0-16.0); Imm Gran Abs Auto 0.27 X10*3/uL (0.00-0.03); Imm Gran Pct Auto 1.3 % (0.0-0.4); Lymphocytes Absolute Auto 1.8 X10*3/uL (1.2-4.9); Lymphocytes Percent Auto 8.9 % (20-40); Mean Corpuscular HGB Conc 30.8 g/dl (31.0-35.0); Mean Corpuscular Hemoglobin 27.2 pg (27.0-33.0); Mean Corpuscular Volume 88.2 fL (80.0-98.0); Mean Platelet Volume 9.9 fL (9.4-12.3); Monocytes Absolute Auto 0.6 X10*3/uL (0.1-1.2); Monocytes Percent Auto 3.1 % (2-11); Neutrophils Absolute Auto 17.5 x10*3/uL (2.0-8.3); Neutrophils Percent Auto 86.6 % (45-73); Platelet Count 356 X10*3/uL (160-400); Red Blood Count 4.49 X10*6/uL (4.20-5.50); Red Cell Distribution Width 13.9 % (11.0-16.0); White Blood Count 20.2 X10*3/uL (4.8-10.8)
[2023-03-05] MEDS: Topiramate 100 MG TABLET PO (07:44)
[2023-03-05] MEDS: Escitalopram Oxalate 10 MG TABLET PO (07:44)
[2023-03-05] MEDS: Magnesium Oxide 400 MG TABLET PO (07:44)
[2023-03-05] MEDS: Montelukast Sodium 10 MG TABLET PO (07:44)
[2023-03-05] MEDS: Acetaminophen 325 MG TABLET 650 MG PO (07:44)
[2023-03-05] MEDS: Cholecalciferol (Vitamin D3) 25 MCG TABLET 50 MCG PO (07:44)
[2023-03-05 07:45] LABS: Anion Gap 14 (12-20); Blood Urea Nitrogen 16 mg/dL (9-16); Calcium 9.5 mg/dL (8.4-10.2); Carbon Dioxide 17 mmol/L (22-29); Chloride 111 mmol/L (96-108); Creatinine Clr Calc Pharmacy 147.6; Estimated Glomerular Filt Rate > 60; Glucose Random 162 mg/dL (60-115); Potassium 3.7 mmol/L (3.3-5.1); Sodium 138 mmol/L (135-145)
[2023-03-05 08:34] VITALS: PULSE 74; RESP 18; O2SAT 98
[2023-03-05] MEDS: Albuterol/Iprat 2.5/0.5MG 3 ML AMPUL.NEB INHALE (08:34)
--- NOTE | 2023-03-05 09:57 | P.DS_ITS ---
DS: Providers Provider Date of Service: 03/05/23 Date of admission: 03/02/23 23:21 Date of discharge: 03/05/23 Primary care physician: Fernando Oliva MD Attending physician on admission: Marilee Howard Attending physician on discharge: Venu Garcia Discharging clinician: Marilee Howard DS: Diagnosis Discharge Diagnosis (1) Hypoxia: Status: Acute (2) Asthma with exacerbation: Status: Acute (3) Pneumonia: Status: Acute (4) Obesity hypoventilation syndrome: Status: Acute DS: Summary Hospital Course Hospital Course: HPI on admission by Dr. Jaramillo on 03/02: Chief Complaint: Dyspnea This is a 23-year-old female with pertinent history of asthma not on home oxygen, benign intracranial hypertension, migraine headaches, mood disorder, gastroesophageal reflux disease who presents to the emergency department for evaluation of dyspnea. Patient states her symptoms started 3 days prior to presentation. She has been having dyspnea which is worse with ambulation. Is it associated with productive cough and wheezing. Also has been having subjective fevers and chills. Patient went to urgent care 2 days prior to presentation and was prescribed oral antibiotics. Patient states her symptoms have progressed over the last 2 days. Has never been hospitalized for asthma. No chest discomfort, palpitations, abdominal pain, changes in urinary or bowel habits. In the emergency department, imaging concerning for right-sided pneumonia and patient was found to be hypoxemic requiring supplemental oxygen. Hospital course: Pt admitted to [facility] for further mangagement of acute asthma exacerbation due to RLL pneumonia and acute hypoxemic respiratory failure. Treated with IV ceftriaxone and azithromycin, IV steroids, and scheduled duonebs. Encouraged to use incentive spirometry given suspicion for underlying obesity hypoventilation syndrome and was successfully weaned from O2. Hospital course otherwise uneventful. Discharged on cefuroxime 500mg BID x 4 doses and prednisone 40mg daily x 5 days. Given short course robitussin AC and advised to use albuterol prn for sob/wheezing. Follow up with pcp. Continue all other home medications. #. Acute hypoxemic respiratory failure due to asthma exacerbation in the setting of right-sided pneumonia- likely complicated by obesity hypoventilation syndrome -weaned from supplemental O2, continue incentive spirometry at home -Treated with methylprednisolone 40 mg b.i.d. Continue prednisone 40mg daily x 5 days -Treated with jany duonebs, albuterol prn. Continue albuterol prn -IV ceftriaxone and azithromycin while admitted. Continue cefuroxime 500mg BID x4 doses -strep pneumo antigen and Legionella antigen negtaive. MRSA screen negative -blood cultures negative #Acute leukocytosis -likely r/t steroid use as well as infection #Benign intracranial hypertension -continue acetazolamide #Gastroesophageal reflux disease -continue PPI #Migraine headache -continue Topamax #Mood disorder -continue home mood stabilizers #Morbid obesity with BMI >54 -Counseled regarding diet and exercise Status at Discharge Functional status at discharge: independent ambulation Overall status at discharge: patient is progressing back to baseline Time Attestation Discharge coordination time: Greater than 30 minutes Quality: Safe Use of Opioids Does Pt have an Active Cancer Diagnosis on the Problem List?: No Quality: Stroke Does the patient have a stroke diagnosis?: No Physical Exam Vital Signs: Vital Signs: Last Vital Signs Temp 97.8 F 03/05/23 07:25 Pulse 74 03/05/23 08:34 Resp 18 03/05/23 08:34 BP 154/90 H 03/05/23 07:25 Pulse Ox 97 03/05/23 07:25 O2 Del Method Room Air 03/05/23 07:25 O2 Flow Rate 2 03/04/23 07:49 BMI result Body Mass Index 53.9 DS: Data Data Completed and Pending Labs on day of discharge: Laboratory Results - last 24 hr 03/05/23 05:55 WBC 20.2 H RBC 4.49 Hgb 12.2 Hct 39.6 MCV 88.2 MCH 27.2 MCHC 30.8 L RDW 13.9 Plt Count 356 MPV 9.9 Immature Gran % (Auto) 1.3 H Neut % (Auto) 86.6 H Lymph % (Auto) 8.9 L [place] % (Auto) 3.1 Eos % (Auto) 0.0 Baso % (Auto) 0.1 Lymph # (Auto) 1.8 [place] # (Auto) 0.6 Eos # (Auto) 0.0 Baso # (Auto) 0.0 Abs Immat Gran (auto) 0.27 H Absolute Neuts (auto) 17.5 H Absolute Nucleated RBC 0.000 Nucleated RBC % (auto) 0.0 Sodium 138 Potassium 3.7 Chloride 111 H Carbon Dioxide 17 L Anion Gap 14 BUN 16 Creatinine 0.74 Estim Creat Clear Calc 147.6 Estimated GFR > 60 Random Glucose 162 H Calcium 9.5 Preliminary micro results at discharge 03/02/23 20:37 Blood Culture - Preliminary Blood - Venous No growth after 48 hours. 03/02/23 01:00 Blood Culture - Preliminary Blood - Venous No growth after 48 hours. Discharge Plan Discharge Anticipated Discharge Date/Time: 03/05/23 10:52 Patient Disposition: Home, Self-Care Discharge Diagnosis: asthma exacerbation, pneumonia hypoxia Referrals: Fernando Oliva MD [Primary Care Provider] - 1 Week Discharge Medications: New cefuroxime axetil 500 mg tablet 500 mg PO Q12H Qty: 4 0RF codeine-guaifenesin 10-100 mg/5 mL Liquid 10 ml PO Q6H Qty: 100 0RF prednisone 20 mg tablet 40 mg PO BID Qty: 10 0RF albuterol sulfate 90 mcg/actuation HFA aerosol inhaler 1 inh inhalation QID PRN (Reason: shortness of breath or wheezing) Qty: 8.5 1RF Continued acetazolamide 500 mg capsule, extended release 2,000 mg PO DAILY omeprazole 40 mg capsule,delayed release(DR/EC) 40 mg PO DAILY montelukast 10 mg Tablet 10 mg PO DAILY escitalopram oxalate 10 mg tablet 10 mg PO DAILY aripiprazole 20 mg tablet 20 mg PO BEDTIME cyclobenzaprine 5 mg tablet 5 mg PO BEDTIME cholecalciferol (vitamin D3) 50 mcg (2,000 unit) Tablet 50 mcg PO DAILY riboflavin (vitamin B2) [Vitamin B-2] 100 mg Tablet 100 mg PO DAILY topiramate 100 mg tablet 100 mg PO DAILY hydroxyzine pamoate 25 mg capsule 25 mg PO Q8H magnesium oxide 400 mg magnesium Tablet 400 mg PO DAILY Discharge Orders: Discharge Order (Routine); Ordered 03/05/23 Ordered By: Marilee Howard Diet: Advance to usual diet Activity on Discharge: As tolerated Stand Alone Forms: Patient Portal Discharge page Care Plan Goals: Prevent asthma exacerbation Treat pneumonia Health Concerns: Acute asthma exacerbation Pneumonia Acute hypoxemic respiratory failure Obesity hypoventilation syndrome Plan of Treatment: Acute asthma exacerbation with pneumonia -continue prednisone 40 mg daily times 5 days -continue cefuroxime 500 mg twice daily times 4 additional doses -use albuterol inhaler as needed for shortness of breath and wheezing -use Robitussin with codeine only as needed for cough Acute hypoxemic respiratory failure -Secondary to asthma exacerbation and pneumonia -However, this is complicated by obesity as this results in hypoventilation. Weight loss efforts should be pursued Assessment: See above. See dc summary Patient Instructions: Pneumonia (DC) Discharge Date/Time: 03/05/23 11:31
--- NOTE | 2023-03-05 11:20 | PC.NURSE ---
Pts own med from home Acetazolamide ER 500mg returned to her at discharge
--- NOTE | 2023-03-05 12:32 | MHC.CM.PN ---
PT REPORTS SHE LIVES WITH HER PARENTS AND IS INDEPENDENT WITH CARE SHE USES NO DME AND NO HOME SERVICES PT SAYS SHE HAS A HCP ON FILE AT [facility] PCP: PRINCESS URIBE DCP: PT WILL DC HOME TODAY WITH NO SERVICES VIA FAMILY TRAN[facility]ORT
[2023-03-07 03:03] LABS: Legionella Ag Urine Not Detected (Not Detected)
[2023-03-08 22:09] LABS: Strep Pneumo Ag urine Not Detected (Not Detected)
== END 2023-03-05 11:31 | disposition home or self-care (01) | DRG 139 ==
LOC: HO.ED 22:25 → HO.EDOVER 23:24 → HO.S3 03-03 15:23
PROVIDERS: Admitting Provider Student in an Organized Health Care Education/Training Program; Emergency Provider Emergency Medicine; PCP Internal Medicine; Visit Provider Physician Assistant
DX: J18.9 Pneumonia, unspecified organism (principal); J96.01 Acute respiratory failure with hypoxia; J45.41 Moderate persistent asthma with (acute) exacerbation; Z68.43 Body mass index [BMI] 50.0-59.9, adult; E66.2 Morbid (severe) obesity with alveolar hypoventilation; Z71.3 Dietary counseling and surveillance; K21.9 Gastro-esophageal reflux disease without esophagitis; G43.909 Migraine, unspecified, not intractable, without status migrainosus; F31.9 Bipolar disorder, unspecified; Z20.822 Contact with and (suspected) exposure to COVID-19; Z79.899 Other long term (current) drug therapy
CPT/HCPCS: 0241U; 36415; 71046; 80048; 80076; 83605; 85025; 87040; 87449; 87640; 87641; 87899; 94640; 99285; J0456; J0696; J1650; J1885; J1956; J2405; J2543; J2920; J2930

== ENCOUNTER → 2023-03-02 23:21 | Outpatient (BNV) | payer OTHER, SELFPAY | PROVIDERS: Admitting Provider Student in an Organized Health Care Education/Training Program; Emergency Provider Emergency Medicine; PCP Internal Medicine; Visit Provider Student in an Organized Health Care Education/Training Program | DX: J96.01 Acute respiratory failure with hypoxia (principal); J45.41 Moderate persistent asthma with (acute) exacerbation; J18.9 Pneumonia, unspecified organism; E66.2 Morbid (severe) obesity with alveolar hypoventilation | CPT/HCPCS: 99222; 99232; 99239 ==

== ENCOUNTER 2023-12-19 11:38 | Emergency (ER) | payer OTHER, SELFPAY ==
--- NOTE | ~2023-12-19 | US_ITS ---
EXAMINATION: US ABDOMEN LIMITED CLINICAL INFORMATION: Right upper quadrant abdominal pain. COMPARISON: None available. TECHNIQUE: Real-time imaging of the right upper quadrant abdominal viscera. FINDINGS: PANCREAS: Largely obscured by bowel gas. LIVER: The liver is enlarged and diffusely echogenic. No hepatic mass or bile duct dilatation is evident. GALLBLADDER: Normal. The gallbladder is physiologically distended without evidence of stones, sludge, polyps, wall thickening or pericholecystic fluid. COMMON BILE DUCT: Normal in caliber measuring 0.4 cm in diameter. RIGHT KIDNEY: Normal. No hydronephrosis. No renal calculi or focal parenchymal lesions. The kidney measures 12.4 cm in maximum dimension. FREE FLUID: None. US/US abdomen limited IMPRESSION: Enlarged echogenic liver, likely on the basis of steatosis. Electronically signed by: Narayan Kolb MD 12/19/2023 01:25 PM EDT
[2023-12-19 11:53] VITALS: BP 173/110; PULSE 86; RESP 20; TEMP 37.1; O2SAT 95; BMI 59.8
--- NOTE | 2023-12-19 11:56 | ED.GENADULT ---
HPI - General Adult General Stated complaint: Abd pain Related Data Home Medications ?Medication ?Instructions ?Recorded ?Confirmed acetazolamide 500 mg 2,000 mg PO DAILY 03/03/23 03/03/23 capsule,extended release aripiprazole 20 mg tablet 20 mg PO BEDTIME 03/03/23 03/03/23 cholecalciferol (vitamin D3) 50 50 mcg PO DAILY 03/03/23 03/03/23 mcg (2,000 unit) tablet cyclobenzaprine 5 mg tablet 5 mg PO BEDTIME 03/03/23 03/03/23 escitalopram oxalate 10 mg tablet 10 mg PO DAILY 03/03/23 03/03/23 hydroxyzine pamoate 25 mg capsule 25 mg PO Q8H 03/03/23 03/03/23 magnesium oxide 400 mg PO DAILY 03/03/23 03/03/23 montelukast 10 mg tablet 10 mg PO DAILY 03/03/23 03/03/23 omeprazole 40 mg capsule,delayed 40 mg PO DAILY 03/03/23 03/03/23 release riboflavin (vitamin B2) 100 mg 100 mg PO DAILY 03/03/23 03/03/23 tablet (Vitamin B-2) topiramate 100 mg tablet 100 mg PO DAILY 03/03/23 03/03/23 Previous Rx's ?Medication ?Instructions ?Recorded albuterol sulfate 90 mcg/actuation 1 inh inhalation QID PRN shortness 03/05/23 aerosol inhaler of breath or wheezing #8.5 grams cefuroxime axetil 500 mg tablet 500 mg PO Q12H #4 tabs 03/05/23 codeine 10 mg-guaifenesin 100 mg/5 10 ml PO Q6H #100 mL 03/05/23 mL oral liquid prednisone 20 mg tablet 40 mg (2 x 20 mg) PO BID #10 tabs 03/05/23 Allergies Allergy/AdvReac Type Severity Reaction Status Date / Time cariprazine [From Vraylar] Allergy Rash Verified 03/02/23 17:37 cephalexin [From Keflex] Allergy Rash Verified 03/02/23 17:37 doxycycline Allergy Rash Verified 03/02/23 17:37 furosemide [From Lasix] Allergy Rash Verified 03/02/23 17:37 lamotrigine [From Lamictal] Allergy Rash Verified 03/02/23 17:37 linezolid Allergy Rash Verified 03/02/23 17:37 lithium Allergy Rash Verified 03/02/23 17:37 sulfamethoxazole Allergy Rash Verified 03/02/23 17:37 Tetracyclines Allergy Rash Verified 03/02/23 17:37 trimethoprim [From Bactrim] Allergy Rash Verified 03/02/23 17:37 vilazodone [From Viibryd] Allergy Rash Verified 03/02/23 17:37 [facility] Past Medical History Medical History Asthma PTSD (post-traumatic stress disorder) Bipolar 1 disorder Social History Social History Household Members: Family Housing: House Do you presently have visiting nurse or other home services: No Patient Tobacco Use Status: Never used Tobacco service: No Course Course Course Narrative: RME, this is a rapid medical exam performed by Jani Campo please refer to primary provider for complete H&P- 23 year old female presents for evaluation of right sided abdominal pain over the last 3 months. She reports that she has seen her PCP and was diagnosed with gallbladder polyps. Plan for labs, UA, US abdomen Discharge Plan Discharge Prescriptions: No Action acetazolamide 500 mg capsule, extended release 2,000 mg PO DAILY omeprazole 40 mg capsule,delayed release(DR/EC) 40 mg PO DAILY montelukast 10 mg Tablet 10 mg PO DAILY escitalopram oxalate 10 mg tablet 10 mg PO DAILY aripiprazole 20 mg tablet 20 mg PO BEDTIME cyclobenzaprine 5 mg tablet 5 mg PO BEDTIME cholecalciferol (vitamin D3) 50 mcg (2,000 unit) Tablet 50 mcg PO DAILY riboflavin (vitamin B2) [Vitamin B-2] 100 mg Tablet 100 mg PO DAILY topiramate 100 mg tablet 100 mg PO DAILY hydroxyzine pamoate 25 mg capsule 25 mg PO Q8H magnesium oxide 400 mg magnesium Tablet 400 mg PO DAILY cefuroxime axetil 500 mg tablet 500 mg PO Q12H Qty: 4 0RF codeine-guaifenesin 10-100 mg/5 mL Liquid 10 ml PO Q6H Qty: 100 0RF prednisone 20 mg tablet 40 mg PO BID Qty: 10 0RF albuterol sulfate 90 mcg/actuation HFA aerosol inhaler 1 inh inhalation QID PRN (Reason: shortness of breath or wheezing) Qty: 8.5 1RF Print Language: [place]
[2023-12-19 12:41] LABS: MANUAL DIFF FLAG NO
[2023-12-19 12:43] LABS: Appearance Urine Clear; Color Urine Yellow; Glucose Urine UA Negative (Negative); Leukocyte Esterase Urine Trace (Negative); Nitrite Urine Negative (Negative); UMIC TRIGGER UACC YES; Urine Blood Negative (Negative); Urine Ketones Trace mg/dL (Negative); Urine Protein Negative (Neg-Trace)
[2023-12-19 12:46] LABS: Basophils Percent Auto 0.5 % (0-2); Eosinophils Absolute Auto 0.1 X10*3/uL (0.0-0.4); Eosinophils Percent Auto 1.2 % (0-4); Hematocrit 40.1 % (37.0-47.0); Hemoglobin 13.5 g/dl (12.0-16.0); Imm Gran Abs Auto 0.03 X10*3/uL (0.00-0.03); Imm Gran Pct Auto 0.4 % (0.0-0.4); Lymphocytes Absolute Auto 2.1 X10*3/uL (1.2-4.9); Lymphocytes Percent Auto 26.1 % (20-40); Mean Corpuscular HGB Conc 33.7 g/dl (31.0-35.0); Mean Corpuscular Hemoglobin 27.4 pg (27.0-33.0); Mean Corpuscular Volume 81.5 fL (80.0-98.0); Mean Platelet Volume 9.4 fL (9.4-12.3); Monocytes Absolute Auto 0.4 X10*3/uL (0.1-1.2); Monocytes Percent Auto 4.9 % (2-11); Neutrophils Absolute Auto 5.5 x10*3/uL (2.0-8.3); Neutrophils Percent Auto 66.9 % (45-73); Platelet Count 332 X10*3/uL (160-400); Red Blood Count 4.92 X10*6/uL (4.20-5.50); White Blood Count 8.2 X10*3/uL (4.8-10.8)
[2023-12-19 12:48] LABS: Bacteria Urine 2+ (None Seen); Hyaline Casts Urine 0-2 /LPF (0-2); RBC Urine 0-2 /HPF (0-2); UACC Culture Trigger YES
[2023-12-19 12:50] LABS: Prothrombin Time 11.5 SEC (10.9-12.4)
[2023-12-19 13:16] LABS: Alanine Aminotransferase 35 U/L (0-31); Albumin Level 4.4 g/dL (3.5-5.0); Alkaline Phosphatase 66 U/L (39-117); Anion Gap 11 (12-20); Aspartate Amino Transferase 26 U/L (5-31); Bilirubin Total 0.3 mg/dL (0.0-1.0); Blood Urea Nitrogen 9 mg/dL (9-16); Calcium 9.2 mg/dL (8.4-10.2); Carbon Dioxide 22 mmol/L (22-29); Chloride 109 mmol/L (96-108); Creatinine Clr Calc Pharmacy 182.6; Estimated Glomerular Filt Rate > 60; Glucose Random 79 mg/dL (60-115); HCG Quantitative < 2 mIU/mL; Lipase 13 U/L (8-78); Potassium 3.8 mmol/L (3.3-5.1); Sodium 138 mmol/L (135-145); Total Protein 7.3 g/dL (6.5-8.0)
[2023-12-19 13:40] LABS: Influenza A PCR NEGATIVE (Negative); Influenza B PCR NEGATIVE (Negative); Resp Syncy Virus RNA Qual PCR NEGATIVE (Negative); SARS COV2 PCR INHOUSE NEGATIVE (Negative)
== END 2023-12-19 16:22 | disposition left against medical advice (07) ==
PROVIDERS: Physician Assistant; Emergency Provider Emergency Medicine; PCP Internal Medicine
DX: R10.31 Right lower quadrant pain (principal); Z79.899 Other long term (current) drug therapy; Z03.818 Encounter for observation for suspected exposure to other biological agents ruled out
CPT/HCPCS: 0241U; 36415; 76705; 80053; 81001; 83690; 84702; 85025; 85610; 87086; 99281; 99282